=== PATIENT | male | born 1970 | race Two or more races ===

== ENCOUNTER 2020-08-03 02:09 | Emergency (ER) | payer OTHER ==
[~2020-08-03] VITALS: Ht 177.8 cm; Wt 90.7 kg
[~2020-08-03 02:09] MED LIST: TRAMADOL HCL50 MG PO
== END 2020-08-03 04:55 | disposition home or self-care (01) ==
LOC: ER 02:09
DX: T78.1XXA Other adverse food reactions, not elsewhere classified, initial encounter (principal); R22.0 Localized swelling, mass and lump, head

== ENCOUNTER 2022-12-10 17:37 | Emergency (ER) | payer OTHER ==
[~2022-12-10] VITALS: Ht 175.3 cm; Wt 90.7 kg
[2022-12-10 20:41] LABS: HEMOGLOBIN 15.4 g/dL (13-16.00); MEAN CELL VOLUME 85.9 fL (80.0-100.00); MEAN CORPUSCULAR HEMOGLOBIN 28.8 pg (27.00-32.0); MEAN CORPUSCULAR HGB CONC 33.6 g/dl (32.0-36.0); PLATELET COUNT 211 K/uL (150-450); RED BLOOD COUNT 5.36 M/uL (4.00-6.00)
[2022-12-10 21:00] LABS: CALCIUM 8.6 mg/dL (8.5-10.1); CREATININE SERUM 1.08 mg/dL (0.70-1.30); GFR 72.37; POTASSIUM 3.68 mEq/L (3.5-5.1)
[2022-12-11] MEDS ORDERED: LEVSIN/SL0.125 MG SL (02:41)
[2022-12-11] MEDS ORDERED: INTESTINEX680 M2 PO (02:41)
== END 2022-12-11 02:45 ==
LOC: ER 17:37
PROVIDERS: Emergency Medicine
DX: K52.9 Noninfective gastroenteritis and colitis, unspecified (principal)